=== PATIENT | male | born 1990 | race Caucasian/White ===

== ENCOUNTER 2020-08-18 16:35 | Emergency (ER) | payer OTHER, SELFPAY ==
[2020-08-18 16:43] VITALS: BP 131/74; PULSE 78; RESP 18; O2SAT 99; BMI 22.1
--- NOTE | 2020-08-18 16:46 | XR_ITS ---
PROCEDURE INFORMATION: Exam: XR Left Foot Exam date and time: 08/18/2020 4:46 PM Age: 30 years old Clinical indication: Injury or trauma; Other: Rock fell on left foot; Work related; Blunt trauma; Additional info: Rock fell off of dump truck TECHNIQUE: Imaging protocol: XR Left foot. Views: 3 or more views. COMPARISON: No relevant prior studies available. FINDINGS: Bones/joints: No acute fracture or dislocation. Joint spaces are preserved. Normal bone mineralization. Soft tissues: Normal. IMPRESSION: No acute findings.
[2020-08-18 16:51] VITALS: BP 137/79; PULSE 81; RESP 16; TEMP 36.6; O2SAT 99; BMI 22.1
--- NOTE | 2020-08-18 17:19 | HMH.EDUTC ---
[facility] [place] Disposition Clinical Impression: Contusion, foot Qualifiers: Encounter type: initial encounter Laterality: left Qualified Code(s): S90.32XA - Contusion of left foot, initial encounter Disposition: Home, Self-Care Condition on Discharge: Good Instructions: Contusion, DI for Contusion, How To Perform RICE (Rest, Ice, Compress, Elevate) Additional Instructions: *weight bearing as tolerated *RICE, Rest the extremity, Ice 15-20 minutes 3-4 times daily, Compress- wear the gagandeep wrap as discussed as much as possible to help reduce swelling and pain, Elevate the extremity when at rest *Gagandeep wrap is for support and help control swelling, use it except in the shower. Be sure that is not to tight but not to loose either *Elevate when resting *Ibuprofen every 6-8 hours as needed for pain an inflammation. If need something more can take Tylenol in between doses of Ibuprofen to help Immediately follow up with your family doctor for new or worsening of symptoms, or no noticeable improvement over the next 3-5 days Follow up with Family Doctor if pain continues Return if needed Straight to ER if any life threatening symptoms Referrals: Mark Banegas MD [Primary Care Provider] - As needed Time of Disposition: 17:25 Medical Decision Making - Cory Inquiry Pt receiving controlled substance: No Cory was queried for this patient: No Vital Signs: 08/18/20 16:43 08/18/20 16:51 Temperature 97.8 F Temperature Source Tympanic Pulse Rate [Left Radial] 78 81 Respiratory Rate 18 16 Blood Pressure [Right Arm] 131/74 137/79 Blood Pressure Mean [Right Arm] 93 98 Blood Pressure Source [Right Arm] Automatic Cuff Blood Pressure Position [Right Arm] Sitting 02 Sat by Pulse Oximetry 99 99 Oxygen Delivery Method Room Air - Radiology Data #1 Image(s): Foot/Toes Image Reviewed: Yes I have reviewed radiologist's interpretation Preliminary Findings: No Fracture Seen Medical Decision Narrative: Discussed with patient and recommended crutches and off work but patient refused patient educated to go home elevate foot, ice 20 min every couple of hours and over the counter Motrin for pain [facility] [place] HPI - General Stated complaint: AO rock fell on L foot 1145 Time Seen by Provider: 08/18/20 17:19 Mode of Arrival: Ambulatory Source of Information: Patient Limitations: No Limitations Description of Symptoms (Recalled from Triage Doc. by RN): pt states a rock fell off the back of a dump truck and landed on his L foot. he was wearing steal toe boots but he is having pain behind where the steal plate ends. HEENT Symptoms (Recalled from RN notes): No Resp Symptoms (Recalled from RN notes): No Skin Symptoms (Recalled from RN notes): No MS Symptoms (Recalled from RN notes): Yes (L foot pain) Functional Status (Recalled from RN notes): na - History of Present Illness Provider Complaint: Patient states that he was at work today when a rock fell off the back of the dump truck and landed on his left foot States that he was wearing steel toed boots but thinks the rock hit behind the steel toe due to he is having pain to the top of his foot States that he has been walking on it but wanted to get it checked to make sure that nothing is broken - Related Data Home Medications Medication Instructions Recorded Confirmed No Known Home Medications 03/16/19 03/16/19 Allergies Allergy/AdvReac Type Severity Reaction Status Date / Time No Known Allergies Allergy Verified 08/18/20 16:55 - Worker's Comp Is this a Worker's Comp case?: No [facility] History - Hepatitis A Screen Drug use history?: No High risk sexual behaviors?: No History of sexually transmitted infection?: No Currently employed?: No Childcare worker?: No Do you have indoor plumbing?: Yes Do you have electricity?: Yes Attestation statement:: This patient has been screened for Hepatitis A risk factors. I have reviewed the patient's past medical history: Yes Comment: No
[2020-08-18 17:29] VITALS: BP 133/79; PULSE 82; RESP 17; TEMP 36.6
== END 2020-08-18 17:29 | disposition home or self-care (01) ==
PROVIDERS: Emergency Provider Nurse Practitioner; PCP Emergency Medicine
DX: S90.32XA Contusion of left foot, initial encounter (principal); W20.8XXA Other cause of strike by thrown, projected or falling object, initial encounter; Y92.69 Other specified industrial and construction area as the place of occurrence of the external cause; Y99.0 Civilian activity done for income or pay; F17.210 Nicotine dependence, cigarettes, uncomplicated
CPT/HCPCS: 73630; 99202; G0463